=== PATIENT | male | born 1995 | race Two or more races ===

== ENCOUNTER 2017-05-27 07:39 | Day surgery (SDC) | payer OTHER ==
[2017-05-26 09:52] VITALS: BMI 28.5
[2017-05-27] MEDS ORDERED: ROPIVACAINE HCL 0.5% 30ML VIAL ONE (09:53)
[2017-05-27] MEDS ORDERED: PROPOFOL 20 ML ONE ×7 (09:55→11:04)
[2017-05-27] MEDS ORDERED: SUCCINYLCHOLINE CHLORIDE 200 MG/10 ML VIAL ONE (09:55)
[2017-05-27] MEDS ORDERED: MIDAZOLAM HCL 2 MG/2 ML SINGLE DOSE VIAL ONE ×2 (09:55)
[2017-05-27] MEDS ORDERED: ceFAZolin SODIUM 1 GM VIAL ONE (10:38)
[2017-05-27] MEDS ORDERED: LIDOCAINE HCL 1%, 10 MG/ML (20ML VIAL) ONE (10:39)
[2017-05-27] MEDS ORDERED: GLYCOPYRROLATE 0.2 MG/1 ML VIAL ONE (10:47)
[2017-05-27] MEDS ORDERED: DEXAMETHASONE SOD PHOSPHATE 4 MG/1 ML VIAL ONE (11:00)
[2017-05-27] MEDS ORDERED: ONDANSETRON 4 MG/2 ML VIAL ONE (11:00)
[2017-05-27] MEDS ORDERED: ceFAZolin SODIUM 1 GM VIAL IVPB ONE (11:10)
[2017-05-27] MEDS ORDERED: PROMETHAZINE HCL 25 MG/1 ML VIAL IVPUSH PRN (11:56)
[2017-05-27] MEDS ORDERED: oxyCODONE HCL 5 MG TABLET PO PRN ×2 (11:56)
[2017-05-27] MEDS ORDERED: ONDANSETRON 4 MG/2 ML VIAL IVPUSH PRN (11:56)
[2017-05-27] MEDS ORDERED: oxyCODONE HCL 5 MG TABLET PO ONE (15:05)
[2017-05-27] MEDS ORDERED: oxyCODONE HCL 5 MG TABLET ONE (15:06)
[2017-05-27 15:48] VITALS: BP 122/76; PULSE 96
[2017-05-27 15:57] VITALS: TEMP 97.8
--- NOTE | 2017-05-28 13:53 | PATH ---
Surgical Pathology Report Patient Name: BRENNAN YOO Med. Rec. #: [id number] /Age/Gender: 1995 (Age: 22) / M Account: [id number] Location: [facility] SURGICAL Taken: 05/27/2017 Received: 05/27/2017 Reported: 05/28/2017 Physicians: Izabella Polanco M.D. Specimen(s) Received A: RIGHT BREAST MASTECTOMY B: LEFT BREAST MASTECTOMY Clinical History Bilateral gynecomastia Final Diagnosis A. RIGHT BREAST TISSUE, EXCISION: BENIGN BREAST TISSUE WITH STROMAL FIBROSIS AND FOCAL DUCTAL DILATATION. B. LEFT BREAST TISSUE, EXCISION: BENIGN BREAST TISSUE WITH STROMAL FIBROSIS AND FOCAL DUCTAL DILATATION. Electronically Signed Lai Dave M.D. Gross Description A. Received in formalin labeled "right breast tissue," is a 115 g aggregate of 2 irregular, unoriented portions of fibroadipose tissue measuring 6.5 x 5.0 x 2.4 cm and 8.5 x 6.8 x 2.6 cm. There is no skin present. The smaller portion is inked blue and the larger portion is inked black. Sectioning reveals a focus of dense white fibrous tissue within the larger portion of tissue. No definitive masses are identified. [employer] sections are submitted in 7 cassettes as follows: 1-5-fibrous tissue from larger portion of tissue; 6-7-lwckaxnjtakriw smaller portion of tissue. B. Received in formalin labeled "left breast tissue," is a 149 g aggregate of abundant irregular, unoriented fragments of fibroadipose tissue. There is no skin present. The largest portion measures 10.0 x 7.0 x 3.3 cm and is inked blue. Sectioning reveals multiple foci of dense, white fibrous tissue. [employer] sections are submitted in 10 cassettes as follows: 1-6-fibrous tissue from largest portion of tissue; 7-09-hrjjpqk tissue from smaller fragments. Total formalin fixation time: Approximately 9 hours 05/27/201705/27/2017
--- NOTE | 2017-05-28 15:38 | OP ---
DATE OF OPERATION: 05/27/2017 PREOPERATIVE DIAGNOSIS: Bilateral gynecomastia. POSTOPERATIVE DIAGNOSIS: Bilateral gynecomastia. PROCEDURE: Bilateral subcutaneous mastectomy. SURGEON: Izabella Manuel MD ANESTHESIA: Paravertebral block and IV sedation. ESTIMATED BLOOD LOSS: Minimal. COMPLICATIONS: None. This was a sterile procedure. INDICATIONS: Patient presented with bilateral gynecomastia and had a workup that could not find any medical etiology. Therefore, my recommendation was bilateral subcutaneous mastectomy. The procedure was discussed with all the questions answered. PROCEDURE IN DETAIL: Patient was brought to [facility] in [place], and after a paravertebral block done by the anesthesiologist, he was brought into the operating room, and after IV sedation and IV antibiotics, both breasts were prepped and draped in the usual sterile fashion. First, the right mastectomy was performed, and the incision was made in the lateral aspect of the right breast radially and superior, inferior, medial, and lateral flaps were created. Then, the breast tissue was reflected off the muscle with a slim layer of fat. This tissue was sent as right mastectomy. I felt medially I still had more tissue, therefore, took that separately. This was all sent as right mastectomy. Hemostasis was assured with electrocautery. The parenchyma approximated with interrupted 2-0 Vicryl, skin approximated with interrupted 3-0 Vicryl and running 4-0 Biosyn. Next, a left mastectomy was performed, and again, a lateral incision was made in the left breast, and superior, inferior, medial, and lateral flaps were created, and the subcutaneous mastectomy was performed and sent to Pathology as left mastectomy for permanent section. Hemostasis with electrocautery. The parenchyma approximated with interrupted 2-0 Vicryl. Skin approximated with interrupted 3-0 Vicryl running and 4-0 Biosyn. A sterile dressing with Tegaderm and 4 x 4's applied and an Armin wrap. He tolerated the procedure well, was taken to recovery room in good condition. IZABELLA MANUEL M.D. [id number]
--- NOTE | 2017-05-29 07:24 | SURG ---
Surgery Stepdown Nurse Note Stepdown Nurse: Jolene Kirkland PA-C Date of Service: 05/27/17 Diagnosis: bilateral gynecomastia Procedure: bilateral subcutaneous mastectomy I was present for the entirety of the operative procedure. For further detail, please refer to operative report. Visit type - Case Type Case Type: Scheduled Admission
== END 2017-05-27 15:53 | disposition home or self-care (01) ==
LOC: JASU-SURG 07:39
PROVIDERS: ATTEND Surgery
PROC: 0HBV0ZZ Excision of Bilateral Breast, Open Approach (ICD-10-PCS; principal; 2017-05-27 10:00)
DX: N63 Unspecified lump in breast (principal); N60.31 Fibrosclerosis of right breast; N60.32 Fibrosclerosis of left breast
CPT/HCPCS: 88305-TC; 94760